=== PATIENT | female | born 1935 | race American Indian/Alaskan Native ===

== ENCOUNTER 2021-06-09 14:11 | Emergency (ER) | payer MEDICARE ==
--- NOTE | 2021-06-09 14:45 | Consultation ---
History of Present Illness - Reason for Consult Consult date: 06/09/21 - History of Present Illness [facility] Consult Note # Demographics Consult Type: Acute Stroke Level 1 (0-4.5 hrs) Patient Location: Emergency Room First Name: Mildred Last Name: Neri Date of : 1935 Age: 86 Gender: Female Facility: [facility] Time of Initial Page ( Time): 06/09/2021, 14:13 Time of Return Call ( Time): 06/09/2021, 14:13 # HPI History: 86yo man who presents with slurred speech and left sided facial droop at approximately 1245PM. At baseline, she is not able to walk. # Scores Time of exam and NIHSS (): 06/09/2021, 14:21 Level of Consciousness 1a: [1] = Not alert; but arousable by minor stim LOC Questions 1b: [0] = Answers both questions correctly LOC Commands 1c: [0] = Performs both tasks correctly Best Gaze 2: [0] = Normal Visual 3: [0] = No visual loss Facial Palsy 4: [2] = Partial paralysis Motor Arm Left 5a: [0] = No drift Motor Arm Right 5b: [0] = No drift Motor Leg Left 6a: [0] = No drift Motor Leg Right 6b: [0] = No drift Limb Ataxia 7: [0] = Absent Sensory 8: [0] = Normal Best Language 9: [0] = No aphasia Dysarthria 10: [1] = Kcpf-to-jmixoxsz dysarthria Extinction and Inattention 11: [0] = No abnormality NIHSS Total: 4 # Exam Vitals: vital signs reviewed Cranial Nerves: peripheral left facial with decreased eye closure on left side # PMH-FH-SH Past Medical History: stroke Social History: non-ambulatory at baseline # Data Head CT: no bleed # Assessment Impression: [place] Palsy # Plan Thrombolytic/Intervention: NOT IV Thrombolysis or IA Intervention candidate Intraarterial Exclusion: clinically not consistent with stroke Other: I have discussed my recommendations with the referring provider Additional Recommendations: conservative mgmt for bells palsy Medications and Allergies Allergies Allergy/AdvReac Type Severity Reaction Status Date / Time No Known Allergies Allergy Verified 09/13/13 03:36 Home Medications Medication Instructions Recorded Confirmed Last Taken Type Aspirin 325 mg PO DAILY 09/13/13 10/02/14 10/01/14 History Atorvastatin [Lipitor] 40 mg PO DAILY 09/13/13 10/02/14 10/01/14 History Clopidogrel Bisulfate [Plavix] 75 mg PO DAILY 09/13/13 10/02/14 10/01/14 History DULoxetine [Cymbalta] 1 cap PO DAILY 09/13/13 10/02/14 10/01/14 History Famotidine [Pepcid] 20 mg PO BID 09/13/13 10/02/14 10/01/14 History Gabapentin 300 mg PO Q8H 09/13/13 10/02/14 10/01/14 History HYDROcodone/APAP 10-325 [[place] 10 - 500 mg PO Q4HR PRN 09/13/13 10/02/14 10/01/14 History 10-325 mg TAB] Insulin Aspart (Nf) [NovoLOG 12 units SUB-Q TID 09/13/13 10/02/14 10/01/14 History Flexpen] Insulin Glargine,Hum.rec.anlog 55 units SUB-Q HS 09/13/13 10/02/14 10/01/14 History [Lantus Solostar] Isosorbide Mononitrate [Imdur] 120 mg PO QDAY 09/13/13 10/02/14 10/01/14 History Metoprolol [Lopressor TAB] 50 mg PO BID 09/13/13 10/02/14 10/01/14 History Nitroglycerin [Nitro Dur] 1 patch TRANSDERMA DAILY 09/13/13 10/02/14 10/01/14 History Ranolazine [Ranexa] 1 tab PO BID 09/13/13 10/02/14 10/01/14 History Butalb/Acetamin/Caff 50-325-40 1 tab PO Q6H PRN #12 tablet 11/29/13 10/02/14 10/01/14 Rx [Fioricet 50-325-40] amLODIPine 5 mg PO DAILY #30 tablet 03/20/14 10/02/14 10/01/14 Rx lisinopriL [Zestril TAB] 20 mg PO QDAY #30 tab 03/20/14 10/02/14 10/01/14 Rx
--- NOTE | 2021-06-09 15:00 | Cat Scan Report ---
CT head/brain wo con INDICATION / CLINICAL INFORMATION: 86 years Female; CALL REPORT [phone] Stroke symptoms WEAKNESS. TECHNIQUE: Routine CT head without contrast. All CT scans at this location are performed using CT dos e reduction for ALARA by means of automated exposure control. COMPARISON: 10/04/2014 FINDINGS: BRAIN / INTRACRANIAL CONTENTS: Thalamic lacunar infarcts are seen bilaterally-right more prominent th an left. Findings on the right are seen on prior exam. Corpus striatal type infarct suggested on the left-small. Small branch PICA infarcts suggested on the right. These findings could be subacute to chronic in age . Otherwise, no acute hemorrhage, mass effect, midline shift, hydrocephalus, or acute, large territori al infarct. No signs of significant atrophy or chronic infarct. There are moderate, somewhat confluent areas of decreased attenuation in the white matter of the cere bral hemispheres, as well as the gangliocapsular regions. These are nonspecific findings and may be r elated to microangiopathy (hypertension, diabetes, atherosclerosis), given the patient's age. Pontine disease noted. CRANIOCERVICAL JUNCTION: No significant abnormality. ORBITS: No significant abnormality of visualized orbits. SINUSES / MASTOIDS: Visualized paranasal sinuses and mastoid air cells are essentially clear. ADDITIONAL FINDINGS: Atherosclerotic disease is seen in the anterior and posterior circulation. Minimal subcutaneous soft tissue swelling is seen in the right frontal region without signs of underl vida calvarial fracture. IMPRESSION: 1. No focal mass, hemorrhage, hydrocephalus, or acute, large territorial infarct. Follow-up with diff usion imaging by MRI, as clinically warranted. CODE STROKE: Exam Completed ([employer] RN/CDT): 06/09/2021 1335 PM Exam Reviewed ([employer] RN/CDT): 1350 p.m. Time of Communication (EMPL[employer] RN/CDT): 1355 PM Licensed Practitioner Receiving Report: Dr. Rodriguez Signer Name: Rick Delacruz MD, III Signed: 06/09/2021 2:56 PM Workstation Name: [id number]
[2021-06-09 15:01] LABS: Basophils % (Auto) 0.6 % (0.0-1.8); Eosinophils % (Auto) 0.4 % (0.0-4.3); Hematocrit 33.3 % (30.3-42.9); Hemoglobin 11.3 gm/dl (10.1-14.3); Lymphocytes # (Auto) 0.7 K/mm3 (1.2-5.4); Lymphocytes % (Auto) 11.4 % (13.4-35.0); Mean Corpuscular HGB Conc 34 % (30-34); Mean Corpuscular Volume 94 fl (79-97); Monocytes # (Auto) 0.5 K/mm3 (0.0-0.8); Monocytes % (Auto) 8.7 % (0.0-7.3); Platelet Count 316 K/mm3 (140-440); Red Blood Count 3.53 M/mm3 (3.65-5.03); Red Cell Distribution Width 14.3 % (13.2-15.2)
[2021-06-09 15:44] LABS: Creatine Kinase MB 2.9 ng/mL (0.0-4.0)
[2021-06-09 15:45] LABS: BUN/Creatinine Ratio 24; Blood Urea Nitrogen 19 mg/dL (7-17); Calcium 9.5 mg/dL (8.4-10.2); Hemolysis Index 3
--- NOTE | 2021-06-09 15:58 | Emergency Department Report ---
ED Neuro Deficit HPI - General Chief Complaint: Neuro Symptoms/Deficit Stated Complaint: STROKE Time Seen by Provider: 06/09/21 14:13 Source: patient Mode of arrival: Ambulatory Limitations: No Limitations - History of Present Illness Initial Comments: 86-year-old female, history of previous CVAs, presents to ED as a stroke alert. EMS reports daughter stated that patient has left-sided facial droop and slurred speech. Last known well time of 12:45 PM. Per EMS at baseline, patient is not ambulatory. Daughter reports patient was seen in the ER on yesterday and diagnosed with a urinary tract infection. -: This afternoon Location: speech, left face Presenting Symptoms: Present: Facial Droop/Numbness, Unable to Speak Clearly History of same: No Place: home Severity: moderate Quality: weak Improves With: none Worsens With: none Associated Symptoms: denies other symptoms - Related Data Home Medications: Home Medications Medication Instructions Recorded Confirmed Last Taken Aspirin 325 mg PO DAILY 09/13/13 10/02/14 10/01/14 Atorvastatin [Lipitor] 40 mg PO DAILY 09/13/13 10/02/14 10/01/14 Clopidogrel Bisulfate [Plavix] 75 mg PO DAILY 09/13/13 10/02/14 10/01/14 DULoxetine [Cymbalta] 1 cap PO DAILY 09/13/13 10/02/14 10/01/14 Famotidine [Pepcid] 20 mg PO BID 09/13/13 10/02/14 10/01/14 Gabapentin 300 mg PO Q8H 09/13/13 10/02/14 10/01/14 HYDROcodone/APAP 10-325 [[place] 10 - 500 mg PO Q4HR PRN 09/13/13 10/02/14 10/01/14 10-325 mg TAB] Insulin Aspart (Nf) [NovoLOG 12 units SUB-Q TID 09/13/13 10/02/14 10/01/14 Flexpen] Insulin Glargine,Hum.rec.anlog 55 units SUB-Q HS 09/13/13 10/02/14 10/01/14 [Lantus Solostar] Isosorbide Mononitrate [Imdur] 120 mg PO QDAY 09/13/13 10/02/14 10/01/14 Metoprolol [Lopressor TAB] 50 mg PO BID 09/13/13 10/02/14 10/01/14 Nitroglycerin [Nitro Dur] 1 patch TRANSDERMA DAILY 09/13/13 10/02/14 10/01/14 Ranolazine [Ranexa] 1 tab PO BID 09/13/13 10/02/14 10/01/14 Previous Rx's Medication Instructions Recorded Last Taken Type Butalb/Acetamin/Caff 50-325-40 1 tab PO Q6H PRN #12 tablet 11/29/13 10/01/14 Rx [Fioricet 50-325-40] amLODIPine 5 mg PO DAILY #30 tablet 03/20/14 10/01/14 Rx lisinopriL [Zestril TAB] 20 mg PO QDAY #30 tab 03/20/14 10/01/14 Rx Valacyclovir HCl [Valtrex] 1,000 mg PO TID 7 Days #21 tablet 06/09/21 Unknown Rx predniSONE [Deltasone] 50 mg PO QDAY #5 tab 06/09/21 Unknown Rx Allergies/Adverse Reactions: Allergies Allergy/AdvReac Type Severity Reaction Status Date / Time No Known Allergies Allergy Verified 09/13/13 03:36 ED Review of Systems ROS: Stated complaint: STROKE Other details as noted in HPI Comment: All other systems reviewed and negative Neurological: as per HPI ED Past Medical Hx - Past Medical History Previous Medical History?: Yes Hx Hypertension: Yes Hx CVA: Yes (minimal left hemiparesthesias residual) Hx Heart Attack/AMI: Yes Hx Diabetes: Yes Additional medical history: SLEEP APNEA. HYPERLIPIDEMIA. CORONARY ATHERSCLEROSIS - Surgical History Past Surgical History?: Yes Hx Coronary Stent: Yes Additional Surgical History: CARDIAC STENTSX2 - Social History Smoking Status: Unknown if ever smoked Substance Use Type: None - Medications Home Medications: Home Medications Medication Instructions Recorded Confirmed Last Taken Type Aspirin 325 mg PO DAILY 09/13/13 10/02/14 10/01/14 History Atorvastatin [Lipitor] 40 mg PO DAILY 09/13/13 10/02/14 10/01/14 History Clopidogrel Bisulfate [Plavix] 75 mg PO DAILY 09/13/13 10/02/14 10/01/14 History DULoxetine [Cymbalta] 1 cap PO DAILY 09/13/13 10/02/14 10/01/14 History Famotidine [Pepcid] 20 mg PO BID 09/13/13 10/02/14 10/01/14 History Gabapentin 300 mg PO Q8H 09/13/13 10/02/14 10/01/14 History HYDROcodone/APAP 10-325 [Williams 10 - 500 mg PO Q4HR PRN 09/13/13 10/02/14 10/01/14 History 10-325 mg TAB] Insulin Aspart (Nf) [NovoLOG 12 units SUB-Q TID 09/13/13 10/02/14 10/01/14 History Flexpen] Insulin Glargine,Hum.rec.anlog 55 units SUB-Q HS 09/13/13 10/02/14 10/01/14 History [Lantus Solostar] Isosorbide Mononitrate [Imdur] 120 mg PO QDAY 09/13/13 10/02/14 10/01/14 History Metoprolol [Lopressor TAB] 50 mg PO BID 09/13/13 10/02/14 10/01/14 History Nitroglycerin [Nitro Dur] 1 patch TRANSDERMA DAILY 09/13/13 10/02/14 10/01/14 History Ranolazine [Ranexa] 1 tab PO BID 09/13/13 10/02/14 10/01/14 History Butalb/Acetamin/Caff 50-325-40 1 tab PO Q6H PRN #12 tablet 11/29/13 10/02/14 10/01/14 Rx [Fioricet 50-325-40] amLODIPine 5 mg PO DAILY #30 tablet 03/20/14 10/02/14 10/01/14 Rx lisinopriL [Zestril TAB] 20 mg PO QDAY #30 tab 03/20/14 10/02/14 10/01/14 Rx Valacyclovir HCl [Valtrex] 1,000 mg PO TID 7 Days #21 tablet 06/09/21 Unknown Rx predniSONE [Deltasone] 50 mg PO QDAY #5 tab 06/09/21 Unknown Rx ED Neuro Physical Exam - General Limitations: No Limitations General appearance: alert, in no apparent distress Suspected Stroke: Yes - Head Head exam: Present: atraumatic, normocephalic - Eye Eye exam: Present: normal appearance, EOMI - ENT ENT exam: Present: mucous membranes moist - Neck Neck exam: Present: normal inspection - Respiratory Respiratory exam: Present: normal lung sounds bilaterally. Absent: respiratory distress - Cardiovascular Cardiovascular Exam: Present: regular rate, normal rhythm - GI/Abdominal GI/Abdominal exam: Present: soft. Absent: distended, tenderness - Extremities Exam Extremities exam: Present: normal inspection - Neurological Exam Neurological exam: Present: alert - NIHSS Assessment Interval: Baseline 1a. Level of Consciousness: arousable/minor stimuli 1b. LOC Questions: answers both correctly 1c. LOC Commands: performs tasks correctly 2. Best Gaze: normal 3. Visual: no visual loss 4. Facial Palsy: partial paralysis 5b. Motor Arm Right: no drift 5a. Motor Arm Left: no drift 6a. Motor Leg Left: no drift 6b. Motor Leg Right: no drift 7. Limb Ataxia: absent 8. Sensory: normal 9. Best Language: no aphasia 10. Dysarthria: mild/moderate dysarthria 11. Extinction/Inattention: no abnormality Total Score: 4 Stroke Severity: Minor Stroke - Psychiatric Psychiatric exam: Present: normal affect, normal mood - Skin Skin exam: Present: warm, dry, intact, normal color ED Course Vital Signs 06/09/21 06/09/21 14:37 16:53 Temperature 98 F Pulse Rate 67 65 Respiratory 16 16 Rate Blood Pressure 174/71 Blood Pressure 182/78 [Left] O2 Sat by Pulse 100 99 Oximetry - Lab Data Result diagrams: 06/09/21 14:50 06/09/21 14:50 Lab Results 06/09/21 06/09/21 06/09/21 Range/Units 14:50 14:50 14:50 WBC 6.2 (4.5-11.0) K/mm3 RBC 3.53 L (3.65-5.03) M/mm3 Hgb 11.3 (10.1-14.3) gm/dl Hct 33.3 (30.3-42.9) % MCV 94 (79-97) fl MCH 32 (28-32) pg MCHC 34 (30-34) % RDW 14.3 (13.2-15.2) % Plt Count 316 (140-440) K/mm3 Lymph % (Auto) 11.4 L (13.4-35.0) % [place] % (Auto) 8.7 H (0.0-7.3) % Eos % (Auto) 0.4 (0.0-4.3) % Baso % (Auto) 0.6 (0.0-1.8) % Lymph # (Auto) 0.7 L (1.2-5.4) K/mm3 [place] # (Auto) 0.5 (0.0-0.8) K/mm3 Eos # (Auto) 0.0 (0.0-0.4) K/mm3 Baso # (Auto) 0.0 (0.0-0.1) K/mm3 Seg Neutrophils % 78.9 H (40.0-70.0) % Seg Neutrophils # 4.9 (1.8-7.7) K/mm3 PT 17.7 H (12.2-14.9) Sec. INR 1.32 H (0.87-1.13) APTT 32.6 (24.2-36.6) Sec. Thrombin Time 17.0 (15.1-19.6) Sec. Sodium 140 (137-145) mmol/L Potassium 3.5 L (3.6-5.0) mmol/L Chloride 101.0 (98-107) mmol/L Carbon Dioxide 23 (22-30) mmol/L Anion Gap 20 mmol/L BUN 19 H (7-17) mg/dL Creatinine 0.8 (0.6-1.2) mg/dL Estimated GFR > 60 ml/min BUN/Creatinine Ratio 24 % Glucose 249 H (65-100) mg/dL Calcium 9.5 (8.4-10.2) mg/dL Total Creatine Kinase 39 (30-135) units/L CK-MB (CK-2) 2.9 (0.0-4.0) ng/mL CK-MB (CK-2) Rel Index 7.4 H (0-4) Troponin T < 0.010 (0.00-0.029) ng/mL - Radiology Data Radiology results: report reviewed, image reviewed - Medical Decision Making 86-year-old female presents to ED with left facial droop. 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 Patient has involvement of the left eye, unable to close eyelid completely. CT head negative for any acute findings. Remainder work-up is unremarkable. Patient will be discharged with prescription for prednisone and Valtrex. - Differential Diagnosis CVA, Ovalle's palsy Critical care attestation.: If time is entered above; I have spent that time in minutes in the direct care of this critically ill patient, excluding procedure time. ED Disposition Clinical Impression: Ovalle's palsy Disposition: 01 HOME / SELF CARE / HOMELESS Is pt being admited?: No Condition: Stable Instructions: Ovalle Palsy, Adult Prescriptions: predniSONE [Deltasone] 50 mg PO QDAY #5 tab Valacyclovir HCl [Valtrex] 1,000 mg PO TID 7 Days #21 tablet Referrals: PRIMARY CARE, [Referring] - 3-5 Days Time of Disposition: 16:54
[2021-06-09 16:17] LABS: INR 1.32 (0.87-1.13)
[2021-06-09 16:55] VITALS: BP 182/78
[2021-06-09 17:43] LABS: Partial Thromboplastin Time 32.6 Sec. (24.2-36.6)
--- NOTE | 2021-06-10 19:03 | Electrocardiograph Report ---
[facility] Test Date: 2021-06-09 Test Time: 15:01:56 Pat Name: DAINA SERRANO Department: Room: Gender: F Biological Sciences Professor: HANNAH : 1935 Requested By: STAN FERNANDES Order Number: [id number] Reading MD: Yaron Rocha Measurements Intervals [place] Rate: 59 P: 76 OR: 158 QRS: -25 QRSD: 78 T: 236 QT: 428 QTc: 425 Interpretive Statements Sinus bradycardia Probable left atrial enlargement Left axis deviation Nonspecific T abnormalities, lateral leads No previous ECG available for comparison Electronically Signed On 06-10-2021 19:03:15 EDT by Yaron Rocha
== END 2021-06-09 17:29 | disposition home or self-care (01) ==
LOC: ED 14:11
DX: G51.0 Bell's palsy (principal); I10 Essential (primary) hypertension; E11.9 Type 2 diabetes mellitus without complications; R79.1 Abnormal coagulation profile; G47.30 Sleep apnea, unspecified; Z86.73 Personal history of transient ischemic attack (TIA), and cerebral infarction without residual deficits; Z98.890 Other specified postprocedural states; Z79.899 Other long term (current) drug therapy
CPT/HCPCS: 36415; 70450; 80048; 82550; 82553; 84484; 85025; 85610; 85670; 85730; 93005; 99284